=== PATIENT | male | born 1980 | race Two or more races ===

== ENCOUNTER 2020-03-04 00:38 | Emergency (ER) | payer OTHER ==
[~2020-03-04] VITALS: Ht 188 cm; Wt 108.0 kg
[2020-03-04 03:17] VITALS: BP 142/100
[2020-03-04] MEDS ORDERED: KETOROLAC TROMETH 60MG/2ML VIAL IM ONE (03:30)
== END 2020-03-04 04:19 | disposition home or self-care (01) ==
LOC: ER 00:40
DX: S20.212A Contusion of left front wall of thorax, initial encounter (principal); W11.XXXA Fall on and from ladder, initial encounter; Y93.89 Activity, other specified; Y92.89 Other specified places as the place of occurrence of the external cause; Y99.8 Other external cause status
CPT/HCPCS: 71111; 96372; 99283; J1885

== ENCOUNTER 2023-01-21 17:10 | Emergency (ER) | payer OTHER ==
[~2023-01-21] VITALS: Ht 188 cm; Wt 99.1 kg
[2023-01-21] MEDS ORDERED: IBUP-1455 PO (20:13)
[2023-01-21 21:32] VITALS: BP 145/90; PULSE 100; RESP 17; TEMP 97.8; O2SAT 95
== END 2023-01-21 21:36 | disposition home or self-care (01) ==
LOC: ER 17:10
DX: S82.64XA Nondisplaced fracture of lateral malleolus of right fibula, initial encounter for closed fracture (principal); X50.1XXA Overexertion from prolonged static or awkward postures, initial encounter; Y93.89 Activity, other specified; Y92.89 Other specified places as the place of occurrence of the external cause; Y99.0 Civilian activity done for income or pay
CPT/HCPCS: 29515; 73610; 73630

== ENCOUNTER 2024-02-15 17:13 | Emergency (ER) | payer SELFPAY ==
[~2024-02-15] VITALS: Ht 185.4 cm; Wt 102.2 kg
[~2024-02-15 17:13] MED LIST: IBUP-1455 PO
[2024-02-15] MEDS: IPRATROPIUM BROM 0.5 MG/2.5ML INH SOL NEB ONE (18:08)
[2024-02-15] MEDS: ALBUTEROL SULF 2.5 MG/0.5ML(0.5%) NEB SOLN NEB ONE (18:08)
[2024-02-15 18:39] LABS: Basophils # (auto) 0.1 10 ^3/uL (0-0.2); Basophils % (auto) 0.6 % (0.0-2.0); Eosinophils # (auto) 0.3 10 ^3/uL (0-0.8); Hematocrit 48.5 % (41.0-53.0); Hemoglobin 16.6 g/dL (13.5-17.5); Lymphocytes # (auto) 2.2 10 ^3/uL (0.4-5.4); Lymphocytes % (auto) 24.6 % (10.0-50.0); Mean Corpuscular Hemoglobin 28.6 pg (28.0-32.0); Mean Corpuscular Hgb Conc. 34.2 g/dL (32.0-36.0); Mean Corpuscular Volume 83.5 fL (80.0-100.0); Monocytes # (auto) 0.6 10 ^3/uL (0-1.3); Monocytes % (auto) 6.3 % (0.0-12.0); Neutrophils # (auto) 5.8 10 ^3/uL (1.6-8.6); Neutrophils % (auto) 65.5 % (37.0-80.0); Nucleated Red Blood Cells % 0.1 %; Platelet Count (auto) 250 10^3/uL (140-450); Red Blood Cells 5.81 10^6/uL (4.5-5.90); White Blood Cell 8.8 10^3/uL (4.4-10.8)
[2024-02-15 18:41] LABS: Chloride 101 mmol/L (98-107); Potassium 4.2 mmol/L (3.5-5.1); Sodium 135 mmol/L (136-145)
[2024-02-15 18:42] LABS: Anion Gap 7 (5-15); Carbon Dioxide 27 mmol/L (20-31)
[2024-02-15 18:47] LABS: Glucose 327 mg/dL (74-106)
[2024-02-15 18:48] LABS: BUN/Creatinine Ratio 18.6 (10.0-20.0); Blood Urea Nitrogen 18 mg/dL (9-23)
[2024-02-15] MEDS: methylPREDNISolone SOD SUCC 125 MG/2 ML VL IM ONE (19:02)
[2024-02-15 19:04] VITALS: RESP 18
[2024-02-15] MEDS ORDERED: PRED20TA2 PO (20:19)
[2024-02-15] MEDS ORDERED: ALBU108A5 IN (20:36)
[2024-02-15 20:40] VITALS: TEMP 98.1
[2024-02-15 22:02] VITALS: BP 152/96; PULSE 109; RESP 17; O2SAT 98
== END 2024-02-15 22:13 | disposition home or self-care (01) ==
LOC: ER 17:13
DX: J45.909 Unspecified asthma, uncomplicated (principal); R73.9 Hyperglycemia, unspecified; R00.0 Tachycardia, unspecified; I10 Essential (primary) hypertension; Z90.89 Acquired absence of other organs
CPT/HCPCS: 36415; 71045; 80048; 82962; 83735; 84443; 84484; 85025; 93005; 94640; 96372; 99285; J2919